=== PATIENT | male | born 1970 | race Caucasian/White ===

== ENCOUNTER 2022-05-17 07:20 | Day surgery (SDC) | payer BC ==
[2022-05-17] MEDS ORDERED: Lidocaine 2% 5 ML SDV INJECT ONE (07:21)
[2022-05-17] MEDS ORDERED: Ondansetron 4 MG/2 ML SDV IVPUSH ONE (07:21)
[2022-05-17] MEDS ORDERED: Glycopyrrolate 0.2 MG/ML 5 ML MDV IV ONE (07:21)
[2022-05-17] MEDS ORDERED: Propofol 200 MG/20 ML SDV IV ONE (07:21)
[2022-05-17] MEDS ORDERED: Lactated Ringers 1,000 ML IV SCH (07:45)
[2022-05-17] MEDS ORDERED: Sodium Chloride 0.9% 10 ML Syringe FLUSH PRN (07:45)
[2022-05-17] MEDS ORDERED: Simethicone Drops 40 MG/0.6 ML 30 ML Bottle PO ONE (09:40)
== END 2022-05-17 10:42 | disposition home or self-care (01) ==
LOC: FB.SDS 07:20
PROVIDERS: ATTEND Surgery
DX: Z12.11 Encounter for screening for malignant neoplasm of colon (principal); K57.30 Diverticulosis of large intestine without perforation or abscess without bleeding; E78.5 Hyperlipidemia, unspecified; Z79.899 Other long term (current) drug therapy
CPT/HCPCS: 00812; 45378; A9270; J7120; J2405; J2704; J3490